=== PATIENT | male | born 1965 | race Caucasian/White ===

== ENCOUNTER → 2023-07-11 | Outpatient (REF) | payer OTHER, SELFPAY | LOC: DHSLP | PROVIDERS: ATTENDING PHYSICIAN Internal Medicine Critical Care Medicine; FAMILY PHYSICIAN Nurse Practitioner | DX: G47.33 Obstructive sleep apnea (adult) (pediatric) (principal) | CPT/HCPCS: 95800 ==

== ENCOUNTER 2024-05-27 23:00 | Emergency (ER) | payer BC, SELFPAY ==
[2024-05-27 23:12] VITALS: BP 155/113
--- NOTE | 2024-05-27 23:27 | EDRN ---
that was not checked. Pt has swelling R side face and c/o a swollen gland R side of face.
[2024-05-27] MEDS: NSS 500 IV (23:46)
--- NOTE | 2024-05-27 23:47 | ED.GENMED ---
History of Present Illness
General
Chief Complaint: Oral/Mouth Problem
Source: patient
Exam Limitations: none
Time Seen by Provider: 05/27/24 23:20
History of Present Illness
History of Present Illness:
Patient with ongoing dental issues for about a week. Right upper and right lower dental pain. Saw his primary dentist and referred to an evaluation engineer who did a root canal and a right upper tooth #3. This was 2 days ago. Has had ongoing pain at
this site. However pain in the right lower molar area has also been progressive over the week. Now describing some neck discomfort pain with swallowing. He has a history of penicillin allergy as a child. His evaluation engineer placed him on
azithromycin which she started yesterday. Also started a Medrol Dosepak.
Past History
Past History
ED Past Medical History: HTN and Other (Low testosterone, sleep apnea)
Social History
Tobacco: Non-smoker
Alcohol: Occasional
Drug: None
Personal:
Living: with family
Employment: Employed
Family History
Family History: Other (Noncontributory)
Review of Systems
Review of Systems
All Other Systems: Not applicable
Constitutional: Reports fever
Respiratory: Reports no symptoms
ABD/GI: Reports no symptoms
: Reports no symptoms
Phy Exam
Physical Exam
Physical Exam:
GENERAL: Alert and oriented in no apparent distress
EYE: Orbits normal.
NECK: Supple, patient with a relatively large neck bilaterally. Actually the left neck appears more asymmetrically swollen the right. No erythema no warmth no fluctuance. Mild right submandibular adenopathy..
ENT: Pharynx without erythema. Teeth appear normal no obvious abscess. No gum swelling. Airway is clear. No trismus. Speech is normal
CARDIAC: Regular rate and rhythm without any obvious murmurs.
LUNGS: Clear breath sounds,normal
NEUROLOGICAL: Alert and oriented , grossly non-focal
SKIN: Warm and dry
PSYCH: Normal and appropriate interaction.
Course
Orders/Labs/Results
Orders:
Orders
05/27/24 23:31
IV Insert/Care/Rem.- Treatment PRN
0.9% Sodium Chloride 500 ml [Nss] 500 ml IV BOLUS
05/27/24 23:42
Basic Metabolic Panel Urgent
Complete Blood Count/With Diff Urgent
05/27/24 23:46
Clindamycin 600 mg/50 ml [Cleocin] 600 mg in 50 ml IV NOW
05/27/24 23:50
Amlodipine [Norvasc] 10 mg PO NOW STA
Metoprolol Xl [Toprol Xl] 100 mg PO NOW STA
05/28/24 00:01
CT Neck With Iv Contrast Urgent
Reason For Exam: Right lower dental infection/neck swelling
Abnormal Lab Results
05/27/24
23:42
WBC 14.2 H 10^3/uL
(4.8-10.8)
MPV 10.6 H fL
(7.4-10.4)
Abs Immat Gran (auto) 0.1 H 10^3/uL
(0-0.05)
Absolute Neuts (auto) 12.2 H 10^3/uL
(1.4-6.5)
Absolute Lymphs (auto) 1.0 L 10^3/uL
(1.2-3.4)
Absolute Monos (auto) 0.9 H 10^3/uL
(0.1-0.6)
Neutrophils % 86.0 H %
(42.2-75.2)
Lymphocytes % 7.1 L %
(20.5-51.1)
BUN 26 H mg/dl
(9-20)
Glucose 113 H mg/dl
(70-99)
05/27/24 23:42
05/27/24 23:42
Vital Signs
Initial and Last Documented VS:
Initial Vital Signs
Temp Pulse Resp BP Pulse Ox
98.3 F 72 20 155/113 96
05/27/24 23:12 05/27/24 23:12 05/27/24 23:12 05/27/24 23:12 05/27/24 23:12
Last Documented Vital Signs
Temp Pulse Resp BP Pulse Ox
98.3 F 67 19 156/96 96
05/27/24 23:12 05/28/24 00:30 05/28/24 00:30 05/28/24 00:15 05/28/24 00:30
MDM/Problems Addressed
Differential Diagnosis Includes:
Low suspicion for significant neck infection/Donte's angina. No trismus no drooling no stridor speech is normal. Airway is clear. However we will check labs, give a dose of IV clindamycin and check CT scan.
*Radiology
Radiology exam reviewed: radiology read reviewed (Mild submandibular adenopathy. No abscess.)
*Pulse Oximetry
Patient hypoxic: no
Update Note
Update Note:
Medically stable. Airway clear. No trismus no drooling no stridor. No abscess. Patient has a leukocytosis but is also on steroids. Switch to clindamycin and close follow-up
ED Attending Note
-
Portions of this chart may have been created with voice recognition software.� Occasional wrong word or��sound alike� substitutions may have occurred due to the inherent limitations of voice recognition software.
Discharge Plan
Departure
Patient Disposition: Home (Routine Discharge)
Date of Disposition: 05/28/24
Time of Disposition: 01:31
Patient with high blood pressure during this ER visit?: Yes
Discharge Problem:
Periodontal infection
Instructions: Dental Pain (DC), BLOOD PRESSURE
Prescriptions:
New
clindamycin HCl 300 mg capsule
300 mg PO QID 7 Days Qty: 28 0RF
No Action
metoprolol tartrate 100 MG tablet
100 mg PO PRN PRN (Reason: rapid heart rate)
amlodipine 10 MG tablet
10 mg PO DAILY
losartan [Cozaar] 100 MG tablet
100 mg PO DAILY
jeannette Iraheta,BOlamideanimalis 1 EACH capsule
1 cap PO DAILY
calcium carbonate [calcium] 500 MG tablet
500 mg PO DAILY
Fiber
1 tab PO DAILY
Multivitamin
1 tab PO DAILY
Vitamin E
500 units PO DAILY
Referrals:
Alena Ferris CRNP [Family Provider] -
Activity Restrictions/Additional Instructions:
Stop the azithromycin and start the clindamycin
Your prescription was sent to your pharmacy
Call your evaluation engineer in the morning for close follow-up today
Return with increased pain swelling difficulty swallowing breathing high fever or any other concerning symptoms
Interventions
Interventions:
*Risk Screen - Suicide Last Done: 05/27/24 23:12
*General Assessment Last Done: 05/27/24 23:12
*Neglect/Abuse Screening Last Done: 05/27/24 23:12
ED- Fall Risk Assessment Last Done: 05/27/24 23:12
*ED COVID-19 Vaccine History Last Done: 05/27/24 23:12
Discharge Date and Time
Print Language: LAO
[2024-05-27 23:50] LABS: % Basophils 0.1 % (0-2); % Immature Granulocytes 0.4 % (0-0.5); % Lymphocytes 7.1 % (20.5-51.1); % Monocytes 6.4 % (1.7-9.3); Absolute Immature Granulocytes 0.1 10^3/uL (0-0.05); Absolute Monocytes 0.9 10^3/uL (0.1-0.6); Absolute Neutrophils 12.2 10^3/uL (1.4-6.5); Hematocrit 47.1 % (39.0-52.0); Hemoglobin 16.6 g/dL (13.0-18.0); Mean Corp Hgb Conc. 35.2 g/dL (33.0-37.0); Mean Corpuscular Hgb 29.5 pg (27.0-31.0); Mean Corpuscular Volume 83.7 fL (80.0-94.0); Mean Platelet Volume 10.6 fL (7.4-10.4); Nucleated Red Blood Cells % 0 % (-); Platelet Count 240 10^3/uL (130-400); Red Blood Cell Count 5.63 10^6/uL (4.70-6.10); Red Cell Dist. Width 13.2 % (11.5-14.5); White Blood Cell Count 14.2 10^3/uL (4.8-10.8)
[2024-05-27 23:52] VITALS: BMI 27.5
[2024-05-28] MEDS: CLEOCIN 50 IV (00:05)
[2024-05-28] MEDS: NORVASC 10 MG PO (00:08)
[2024-05-28 00:11] LABS: Blood Urea Nitrogen 26 mg/dl (9-20); Calcium 9.9 mg/dl (8.4-10.2); Carbon Dioxide 26 mmol/L (22-30); Chloride 106 mmol/L (98-107); Estimated Creatinine Clearance 51 ml/min; Glucose 113 mg/dl (70-99); Potassium 4.5 mmol/L (3.5-5.1); Sodium 139 mmol/L (135-145); eGFR > 60.00
[2024-05-28 00:13] VITALS: BP 156/96
[2024-05-28] MEDS: TOPROL XL 100 MG PO (00:15)
[2024-05-28 00:54] VITALS: BP 161/97
[2024-05-28 01:00] VITALS: BP 146/91
[2024-05-28 02:00] VITALS: BP 171/102
[2024-05-28 02:06] VITALS: BP 153/93
== END 2024-05-28 02:10 | disposition home or self-care (01) ==
LOC: EMR 23:00
PROVIDERS: EMERGENCY PHYSICIAN Emergency Medicine; FAMILY PHYSICIAN Nurse Practitioner
DX: K05.20 Aggressive periodontitis, unspecified (principal); I10 Essential (primary) hypertension; G47.30 Sleep apnea, unspecified; Z88.0 Allergy status to penicillin
CPT/HCPCS: 99284; 70491; 80048; 85025; Q9967

== ENCOUNTER → 2024-07-04 14:14 | Outpatient (REF) | payer BC, SELFPAY | LOC: RAD 14:14 | PROVIDERS: ATTENDING PHYSICIAN Nurse Practitioner | DX: J10.1 Influenza due to other identified influenza virus with other respiratory manifestations (principal) | CPT/HCPCS: 71046 ==

== ENCOUNTER → 2024-08-25 11:34 | Outpatient (REF) | payer BC, SELFPAY | LOC: RAD 11:34 | PROVIDERS: ATTENDING PHYSICIAN Nurse Practitioner | DX: J18.9 Pneumonia, unspecified organism (principal) | CPT/HCPCS: 71046 ==